=== PATIENT | female | born 1955 | race Caucasian/White ===

== ENCOUNTER 2016-06-21 16:33 | Outpatient (CLI) | payer OTHER | END 2016-06-21 16:34 | disposition home or self-care (01) | DX: M51.36 Other intervertebral disc degeneration, lumbar region (principal); M47.816 Spondylosis without myelopathy or radiculopathy, lumbar region; M17.12 Unilateral primary osteoarthritis, left knee ==

== ENCOUNTER 2017-01-23 11:32 | Outpatient (CLI) | payer OTHER ==
--- NOTE | 2017-01-24 18:07 | Mammography Report ---
DIGITAL BILATERAL SCREENING MAMMOGRAM: 01/23/2017 CLINICAL HISTORY: A 61-year-old asymptomatic female, second degree family history of breast cancer. TECHNIQUE: Routine CC and MLO projections were obtained of the breasts as well as exaggerated CC vie ws. COMPARISON: 09/2014, 09/2013, 08/2012, 08/2011, 08/2010, 04/2009, 02/2008. FINDINGS: Scattered fibroglandular tissue is present within the breasts. There are no dominant nidia s, suspicious microcalcifications, or secondary signs of malignancy. In comparison to the previous st udies, there are no significant changes. The pattern of glandular asymmetry is stable given positional differences. ASSESSMENT: NO MAMMOGRAPHIC EVIDENCE OF MALIGNANCY. NO SIGNIFICANT INTERVAL CHANGES. RECOMMENDATION: Screening mammography is recommended annually. BI-RADS category 1 - negative. STANDARD QUALIFYING STATEMENTS 1. This examination was reviewed with the aid of Computed-Aided Detection (CAD). 2. A negative or benign imaging report should not delay biopsy if clinically suspicious findings are present. Consider surgical consultation if warranted. More than 5% of cancers are not identified by i maging. 3. Dense breasts may obscure an underlying neoplasm. JOB #: [id number] EXT JOB #:[id number]
== END 2017-01-23 11:33 | disposition home or self-care (01) ==
LOC: DI.N 11:32
PROVIDERS: ATTEND Physician Assistant
DX: Z12.31 Encounter for screening mammogram for malignant neoplasm of breast (principal); Z80.3 Family history of malignant neoplasm of breast
CPT/HCPCS: 77067